=== PATIENT | female | born 1985 | race African-American/Black ===

== ENCOUNTER → 2018-11-23 | Outpatient (CLI) | payer OTHER ==
[2015-10-04 09:34] VITALS: BMI 34.1
[~2018-11-23] MED LIST: BISA-236 RC; CEPH500C24 PO; DOCU-416 PO; IBUP800T37 PO; KET10 PO; OXYC-865 PO; PREN-119 PO; SULF-198 PO
--- NOTE | 2018-11-23 17:28 | RADIOLOGY IMAGING REPORT ---
FACILITY: [facility] PATIENT NAME: JUAN PABLO GOTTI : [id number] MR: [id number] V: [id number] EXAM DATE: [id number] ORDERING PHYSICIAN: DAGO DU TECHNOLOGIST: Orquidea Kyle PROCEDURE:BILATERAL DIAGNOSTIC DIGITAL MAMMOGRAM WITH CAD ASSISTED INTERPRETATION & 3D TOMOSYNTHESIS COMPARISON:None. INDICATIONS:Right breast tenderness FINDINGS: Family history: none. Personal history: none. Views obtained: Digital Bilateral Diagnostic Right Mammogram. Right Breast Ultrasound: Complete. Right Breast Ultrasound in area of pain in the lower inner quadrant. DIAGNOSTIC BILATERAL MAMMOGRAM: Breast density: Heterogeneous dense tissue that could obscure small masses. There are no mass lesions, architectural distortions, or clustering's of suspicious microcalcifications. There are benign oil cysts seen in the upper outer quadrant of the Right breast. Benign appearing punctuate calcifications are scattered diffusely throughout both breasts. Diagnostic Ultrasound: Ultrasound scanned in the lower inner breast in area of pain. There were numerous anechoic circumscribed lesions with increased through transmission consistent with cysts ranging in size from 3.5mm up to a largest cyst of 2.5 x 3.0cm. There were no concerning mass lesions or any architectural distortions. DIAGNOSTIC CATEGORY 2--BENIGN FINDING. RECOMMENDATIONS: CLINICAL EVALUATION AND RETURN IF THERE IS ANY FUTURE CLINICAL CONCERNS. OTHERWISE, RECOMMEND FOLLOW-UP SCREENING MAMMOGRAM ACCORDING TO ACR GUIDELINES. IMPRESSION: BIRADS 2: Benign finding. Dictated by: Man Aceves M.D. on 11/23/2018 at 15:40 Transcribed by: JOE on 11/23/2018 at 15:58 Approved by: Man Aceves M.D. on 11/23/2018 at 17:26 [facility]
--- NOTE | 2018-11-23 17:28 | RADIOLOGY IMAGING REPORT ---
FACILITY: [facility] PATIENT NAME: JUAN PABLO GOTTI : [id number] MR: [id number] V: [id number] EXAM DATE: [id number] ORDERING PHYSICIAN: DAGO DU TECHNOLOGIST: Chan Beckford RDMS, JORI PROCEDURE:US RIGHT BREAST COMPLETE COMPARISON:None. INDICATIONS:Right breast tenderness FINDINGS: Please refer to the diagnostic mammogram report on same day for details. DIAGNOSTIC CATEGORY 2--BENIGN FINDING. RECOMMENDATIONS: CLINICAL EVALUATION. IMPRESSION: BIRADS 2: Benign finding. Dictated by: Man Aceves M.D. on 11/23/2018 at 15:44 Transcribed by: JOE on 11/23/2018 at 16:00 Approved by: Man Aceves M.D. on 11/23/2018 at 17:27 [facility]
== END ==
LOC: MAMO 00:51
PROVIDERS: ATTEND Physician Assistant
DX: N64.4 Mastodynia (principal)
CPT/HCPCS: 77062; 77066